=== PATIENT | female | born 1980 | race Caucasian/White ===

== ENCOUNTER 2016-07-22 17:13 | Emergency (ER) | payer BC, OTHER ==
[~2016-07-22] VITALS: Ht 167.6 cm; Wt 64.5 kg
[2016-07-22 17:30] VITALS: Ht 167.6 cm; Wt 64.5 kg
[2016-07-22] MEDS ORDERED: ONDANSETRON 4 MG INJ IV STA (18:38)
[2016-07-22] MEDS ORDERED: SOD CHLORIDE 0.9% 1,000 ML IV STA (18:38)
[2016-07-22] MEDS ORDERED: morphine 4 MG/ML VIAL IV STA (18:38)
[2016-07-22 19:29] LABS: ADD SCAN DIFF NO
[2016-07-22 19:30] LABS: ABNORMAL IP MESSAGE 1; HEMATOCRIT 40.8 % (37.0-47.0); HEMOGLOBIN 13.9 g/dl (12.0-16.0); MEAN CORPUSCULAR HEMOGLOBIN 31.3 pg (29.0-33.0); MEAN CORPUSCULAR HGB CONC 34.1 g/dl (32.0-37.0); MEAN CORPUSCULAR VOLUME 91.9 fl (82.0-101.0); MEAN PLATELET VOLUME 10.4 fl (7.4-10.4); PLATELET COUNT 313 10^3/UL (140-415); RED BLOOD COUNT 4.44 10^6/ul (4.20-5.40); RED CELL DISTRIBUTION WIDTH 12.5 % (11.5-14.5); WHITE BLOOD COUNT 14.6 10^3/ul (4.8-10.8)
[2016-07-22 19:33] LABS: ADD UMIC YES; URINE BILIRUBIN (Dip) NEGATIVE (NEGATIVE); URINE BLOOD (Dip) NEGATIVE (NEGATIVE); URINE COLOR LT. YELLOW (YELLOW); URINE GLUCOSE (Dip) NEGATIVE (NEGATIVE); URINE KETONES (Dip) 3+ (NEGATIVE); URINE LEUKOCYTE ESTERASE (Dip) NEGATIVE (NEGATIVE); URINE NITRITE (Dip) NEGATIVE (NEGATIVE); URINE TOTAL PROTEIN (Dip) 1+ (NEGATIVE); URINE UROBILINOGEN (Dip) 0.2 E.U./dL (0.1-1.0)
[2016-07-22 19:43] LABS: ALBUMIN 4.9 g/dl (3.3-4.9)
[2016-07-22 19:44] LABS: POTASSIUM 3.7 mmol/L (3.5-5.1)
[2016-07-22 19:46] LABS: ALBUMIN/GLOBULIN RATIO 1.32; BILIRUBIN,INDIRECT 0.8 mg/dl (0-1.1); BILIRUBIN,TOTAL 0.8 mg/dl (0.2-1.3); CREATININE 0.66 mg/dl (0.44-1.00); TOTAL PROTEIN 8.6 g/dl (6.1-8.1)
[2016-07-22 19:47] LABS: CALCIUM 9.6 mg/dl (8.4-10.2)
[2016-07-22 19:52] LABS: BACTERIA,URINE FEW; SQUAMOUS EPITHELIAL CELL,UR MODERATE; URINE RBCS 0-2 /HPF (0)
[2016-07-22 19:57] LABS: LYMPHOCYTES # 0.1 10^3/ul (0.8-2.9); MONOCYTE # 0.3 10^3/ul (0.3-0.9); NEUTROPHIL # 12.3 10^3/ul (1.6-7.5)
--- NOTE | 2016-07-22 20:57 | RADRPT ---
PROCEDURE: CT abdomen and pelvis without IV contrast. CLINICAL INDICATION: Abdominal pain TECHNIQUE: CT scan of the abdomen and pelvis without contrast was performed on the [employer] volumetric [address] scanner. The patient was scanned without intravenous contrast. Coronal and sagittal refo rmatted images were obtained from the axial source images. The CTDI vol is 8.92 mGy and the DLP is 4 50.62 mGy-cm. COMPARISON: None. FINDINGS: CT abdomen: The lung bases are clear. The heart size is not enlarged and is without pericardial thickening or e ffusion. The liver is normal in size and density and is without focal mass or intrahepatic biliary dilatation . The spleen is normal in size and homogeneous in density. The stomach is grossly unremarkable. T he pancreas as visualized is normal. The gallbladder and biliary tree are unremarkable and there is no evidence for common bile duct dilatation. The adrenal glands are symmetric and normal. The kid neys are symmetrically unremarkable as well. No renal calculus or obstructive uropathy or mass lesi on is seen. The aorta is of normal in caliber. There is no retroperitoneal lymphadenopathy. The celio hepatis region is clear. The small and large bowel and mesentery, as visualized, are unremarkable. The norm al appendix is identified. CT pelvis: The pelvic organs are normal. The pelvic sidewalls and inguinal regions are clear. No pelvic mass, lymphadenopathy, or free fluid is seen. No acute inflammation is seen. The urinary bladder is wit hin normal limits. The surrounding osseous structures are unremarkable. No osteolytic or osteoblastic lesion is detect ed. IMPRESSION: No acute pathology in the abdomen and pelvis. RPTAT: HPNM Physician Kimberlee Date Time Electronically viewed and signed by Physician Kimberlee on 07/22/2016 20:57 /
[2016-07-22] MEDS ORDERED: ONDA4TAB14 PO (21:04)
--- NOTE | 2016-07-22 21:07 | ERD ---
ER Documentation Chief Complaint Date/Time DATE: 07/22/16 TIME: 21:05 Chief Complaint ABDOMINAL PAIN WITH NAUSEA AND VOMITING TODAY HPI Patient is a 36-year-old female who presents with nausea vomiting and diarrhea and abdominal pain that began today. Pain is mid abdomen. She thinks it may be due to food she ate yesterday. Denies fever. Denies any dysuria hematuria or increased urinary frequency. Last menstrual period was July 11. ROS All systems reviewed and are negative except as per history of present illness. Medications Home Meds Active Scripts Ondansetron (Ondansetron Odt) 4 Mg Tab.rapdis, 4 MG PO Q6H Y for NAUSEA AND/OR VOMITING, #20 TAB Prov:DIANA VALENCIA PA-C 07/22/16 Allergies Allergies: Uncoded Allergies: BLEACH (Allergy, Intermediate, RASH, 07/22/16) PMhx/Soc Medical and Surgical Hx: pt denies Medical Hx, pt denies Surgical Hx Hx Alcohol Use: No Hx Substance Use: No Hx Tobacco Use: No Smoking Status: Never smoker FmHx Family History: No diabetes Physical Exam Vitals Vital Signs Date Time Temp Pulse Resp B/P Pulse Ox O2 Delivery O2 Flow Rate FiO2 07/22/16 17:30 97.6 61 18 131/81 100 Physical Exam General: well developed, well nourished, alert, nontoxic, no distress Head: normocephalic, atraumatic Neck: Supple, nontender, no lymphadenopathy, no midline tenderness Respiratory: Clear to auscaultation bilaterally, speaks in full sentences, no use of accesory muscles or labored breathing, no rales, ronchi, or wheezing Cardiovascular: RRR, No murmurs GI: soft, non tender, non distended, negative murphys sign, negative mcburneys point tenderness, no cva tenderness bilaterally, no rebound or guarding Back: no midline tenderness, no step offs or bony abnormalities, sensation to light touch in tact Result Diagram: 07/22/16191407/22/161914 Results 24 hrs Laboratory Tests Test 07/22/16 18:45 07/22/16 19:15 Urine Color LT. YELLOW Urine Clarity CLEAR Urine pH 8.5 Urine Specific [place] 1.015 Urine Ketones 3+ Urine Nitrite NEGATIVE Urine Bilirubin NEGATIVE Urine Urobilinogen 0.2 E.U./dL Urine Leukocyte Esterase NEGATIVE Urine Microscopic RBC 0-2/HPF Urine Microscopic WBC 0-2/HPF Urine Squamous Epithelial Cells MODERATE Urine Bacteria FEW Urine Hemoglobin NEGATIVE Urine Glucose NEGATIVE% Urine Total Protein 1+ White Blood Count 14.610^3/ul Red Blood Count 4.4410^6/ul Hemoglobin 13.9g/dl Hematocrit 40.8% Mean Corpuscular Volume 91.9fl Mean Corpuscular Hemoglobin 31.3pg Mean Corpuscular Hemoglobin Concent 34.1g/dl Red Cell Distribution Width 12.5% Platelet Count 43337^3/UL Mean Platelet Volume 10.4fl Neutrophils % 84.0% Band Neutrophils % 13.0% Lymphocytes % 1.0% Monocytes % 2.0% Neutrophils # 12.310^3/ul Lymphocytes # 0.110^3/ul Monocytes # 0.310^3/ul Sodium Level 141mmol/L Potassium Level 3.7mmol/L Chloride Level 100mmol/L Carbon Dioxide Level 24mmol/L Anion Gap 21 Blood Urea Nitrogen 19mg/dl Creatinine 0.66mg/dl Glucose Level 173mg/dl Calcium Level 9.6mg/dl Total Bilirubin 0.8mg/dl Direct Bilirubin 0.00mg/dl Indirect Bilirubin 0.8mg/dl Aspartate Amino Transf (AST/SGOT) 28IU/L Alanine Aminotransferase (ALT/SGPT) 31IU/L Alkaline Phosphatase 66IU/L Total Protein 8.6g/dl Albumin 4.9g/dl Globulin 3.70g/dl Albumin/Globulin Ratio 1.32 Lipase 45U/L Current Medications Medications (Trade) Dose Ordered Sig/Zainab Route PRN Reason Start Time Stop Time Status Last Admin Dose Admin Sodium Chloride (NS) 1,000 ml @ 1,000 mls/hr Q1H STAT IV 07/22/16 18:38 07/22/16 19:37 DC 07/22/16 19:11 Morphine Sulfate (morphine) 4 mg ONCE STAT IV 07/22/16 18:38 07/22/16 18:40 DC 07/22/16 19:11 Ondansetron HCl (Zofran Inj) 4 mg ONCE STAT IV 07/22/16 18:38 07/22/16 18:40 DC 07/22/16 19:11 Procedures/MDM 36-year-old presents with abdominal pain with nausea vomiting and diarrhea. Her vital signs are normal. Her GI examination is normal she has no tenderness throughout her abdomen and no CVA tenderness. Her labs show elevated white blood cell count of 14.6 with 13% neutrophilic bands. I reviewed these findings with Dr. Rodriguez who recommended CT scan and a CT scan was unremarkable. Patient had good relief of her symptoms with morphine and Zofran and fluids. She is discharged with Zofran and copies of all of her labs and CT reports she can follow with primary care. Recommended this patient follow up with her primary care doctor within 48 hours or return to the emergency room for any worsening of symptoms. However this time I do believe there is suitable for outpatient management. I answered all their questions and they agreed with the plan and were discharged home. Departure Diagnosis: Primary Impression: Abdominal pain Condition: Stable Patient Instructions: Abdominal Pain Additional Instructions: Call your primary care doctor TOMORROW for an appointment during the next 1-2 days.See the doctor sooner or return here if your condition worsens before your appointment time. DIANA VALENCIA PA-C July 22, 2016 21:07
[2016-07-22 21:17] VITALS: BP 112/56; PULSE 67; RESP 16
[2016-07-23] MEDS ORDERED: LOPE2CAP PO (05:36)
[2016-07-23] MEDS ORDERED: HYDR-906 PO (05:36)
[2016-07-23] MEDS ORDERED: VENL150C PO (05:44)
[2016-07-23] MEDS ORDERED: GLUC1CAP48 PO (05:44)
[2016-07-23] MEDS ORDERED: FEXO60TA20 PO (05:44)
[2016-07-23] MEDS ORDERED: ALPR0.5T PO (05:44)
== END 2016-07-22 21:18 | disposition home or self-care (01) ==
LOC: FTE 17:13
DX: R10.9 Unspecified abdominal pain (principal); R11.2 Nausea with vomiting, unspecified
CPT/HCPCS: 74176; 80053; 81001; 83690; 85025; J2270; J2405; J7030; 81003; 96374; 96375

== ENCOUNTER 2016-07-23 03:10 | Emergency (ER) | payer BC ==
[~2016-07-23] VITALS: Ht 162.6 cm; Wt 66.5 kg
[~2016-07-23 03:10] MED LIST: ONDA4TAB14 PO
[2016-07-23 03:16] VITALS: Ht 162.6 cm; Wt 66.5 kg
--- NOTE | 2016-07-23 03:40 | ERA ---
ER Documentation Chief Complaint Date/Time DATE: 07/23/16 TIME: 03:40 Chief Complaint abd pain with n/v was seen here yesterday for same problem HPI The patient is a 36-year-old female, presenting to the ER because of abdominal pain, associated with nausea, vomiting, diarrhea after eating German food the day before. She was seen in the ER yesterday for similar symptoms, had extensive workup including a negative the abdominal pelvic CT. She was discharged with Zofran for nausea. She denies fever, chills, neck pain, chest pain The abdominal pain is diffuse and vague. She denies hematemesis or hematochezia, denies dysuria. She does not smoke nor drink does smoke marijuana Past medical history: Anxiety Past surgical history: None ROS All systems reviewed and are negative except as per history of present illness. Medications Home Meds Active Scripts Loperamide Hcl* (Imodium*) 2 Mg Capsule, 2 MG PO .AFTER EA LOOSE BM Y for DIARRHEA, #20 TAB Prov:VICKY MOULTON MD 07/23/16 Hydrocodone/Acetaminophen ([place] 5-325 Tablet) 1 Each Tablet, 1 EACH PO Q6, #10 TAB Prov:VICKY MOULTON MD 07/23/16 Ondansetron (Ondansetron Odt) 4 Mg Tab.rapdis, 4 MG PO Q6H Y for NAUSEA AND/OR VOMITING, #20 TAB Prov:DIANA VALENCIA PA-C 07/22/16 Allergies Allergies: Uncoded Allergies: BLEACH (Allergy, Intermediate, RASH, 07/22/16) PMhx/Soc Hx Alcohol Use: No Hx Substance Use: No Hx Tobacco Use: No Physical Exam Vitals Vital Signs Date Time Temp Pulse Resp B/P Pulse Ox O2 Delivery O2 Flow Rate FiO2 07/23/16 03:16 98.3 58 20 144/71 100 Physical Exam Const: No acute distress. Head: Atraumatic. Eyes: Normal Conjunctiva. ENT: Normal External Ears, Nose and Mouth. Neck: Full range of motion. No meningismus. Resp: Clear to auscultation bilaterally. Cardio: Regular rate and rhythm, no murmurs. Abd: Soft, non distended, normal bowel sounds, minimal and vague abdominal discomfort, no rigidity, rebound, CVA tenderness Skin: No petechiae or rashes. Back: No midline or flank tenderness. Ext: No cyanosis, or edema. Neur: Awake and alert. No focal deficit Psych: Normal Mood and Affect. Result Diagram: 07/23/1639907/23/16399 Results 24 hrs Laboratory Tests Test 07/23/16 04:00 07/23/16 04:11 White Blood Count 11.810^3/ul Red Blood Count 4.0410^6/ul Hemoglobin 12.6g/dl Hematocrit 37.1% Mean Corpuscular Volume 91.8fl Mean Corpuscular Hemoglobin 31.2pg Mean Corpuscular Hemoglobin Concent 34.0g/dl Red Cell Distribution Width 12.6% Platelet Count 81864^3/UL Mean Platelet Volume 10.6fl Neutrophils % 90.0% Band Neutrophils % 1.0% Lymphocytes % 6.0% Monocytes % 3.0% Neutrophils # 10.610^3/ul Lymphocytes # 0.710^3/ul Monocytes # 0.410^3/ul Differential Comment MANUAL DIFF Sodium Level 137mmol/L Potassium Level 3.5mmol/L Chloride Level 103mmol/L Carbon Dioxide Level 22mmol/L Anion Gap 16 Blood Urea Nitrogen 17mg/dl Creatinine 0.59mg/dl Glucose Level 170mg/dl Calcium Level 9.1mg/dl Total Bilirubin 0.6mg/dl Direct Bilirubin 0.00mg/dl Indirect Bilirubin 0.6mg/dl Aspartate Amino Transf (AST/SGOT) 26IU/L Alanine Aminotransferase (ALT/SGPT) 30IU/L Alkaline Phosphatase 59IU/L Total Protein 7.9g/dl Albumin 4.5g/dl Globulin 3.40g/dl Albumin/Globulin Ratio 1.32 Lipase 20U/L Bedside Urine pH (LAB) 8.5 Bedside Urine Protein (LAB) 1+ Bedside Urine Glucose (UA) Negative Bedside Urine Ketones (LAB) 4+ Bedside Urine Blood Negative Bedside Urine Nitrite (LAB) Negative Bedside Urine Leukocyte Esterase (L Negative Current Medications Medications (Trade) Dose Ordered Sig/Zainab Route PRN Reason Start Time Stop Time Status Last Admin Dose Admin Sodium Chloride (NS) 1,000 ml @ 1,000 mls/hr Q1H STAT IV 07/23/16 03:47 07/23/16 04:46 DC 07/23/16 04:03 Morphine Sulfate (morphine) 4 mg ONCE STAT IV 07/23/16 03:47 07/23/16 03:49 DC 07/23/16 04:04 Ondansetron HCl (Zofran Inj) 4 mg ONCE STAT IV 07/23/16 03:47 07/23/16 03:49 DC 07/23/16 04:04 Loperamide HCl 4 mg 4 mg ONCE ONCE PO 07/23/16 04:00 07/23/16 04:01 DC 07/23/16 04:04 Sodium Chloride (NS) 1,000 ml @ 1,000 mls/hr Q1H ONCE IV 07/23/16 04:30 07/23/16 05:29 DC Procedures/MDM MEDICAL MAKING DECISION: The patient is a 36-year-old female, presenting with acute vomiting and diarrhea, most likely due to acute food poisoning, acute dehydration. She want to the 1 L normal saline for acute dehydration, morphine 4 mg IV for pain, Zofran 4 mg IV for nausea and Imodium 4 mg p.o. for diarrhea with good response. The differential diagnoses considered include but are not limited to cholelithiasis, cholecystitis, cystitis, pancreatitis, hepatitis, gastritis, peptic ulcer disease, gastric ulcer, appendicitis, diverticulitis, cholangitis, choledocholithiasis, partial small bowel obstruction. Departure Diagnosis: Primary Impression: Vomiting and diarrhea Additional Impression: Dehydration Condition: Good Comments She was discharged with [place] and Imodium I discussed the findings with the patient. I advised the patient to follow-up with the primary physician in about 1-2 days, sooner if needed and return if any concern. The patient's blood pressure was elevated (>120/80) but appears stable without evidence of hypertension emergency or urgency. The patient was counseled about the risks of hypertension and urged to pursue outpatient monitoring and therapy within a week with their primary care physician. VICKY MOULTON MD July 23, 2016 03:40
[2016-07-23] MEDS ORDERED: ONDANSETRON 4 MG INJ IV STA (03:47)
[2016-07-23] MEDS ORDERED: SOD CHLORIDE 0.9% 1,000 ML IV STA (03:47)
[2016-07-23] MEDS ORDERED: morphine 4 MG/ML VIAL IV STA (03:47)
[2016-07-23] MEDS ORDERED: LOPERAMIDE 2 MG CAP PO ONE (04:00)
[2016-07-23 04:10] LABS: URINE BLOOD (Dip) POC Negative (NEGATIVE)
[2016-07-23 04:16] LABS: ADD SCAN DIFF NO
[2016-07-23 04:18] LABS: ABNORMAL IP MESSAGE 1; HEMATOCRIT 37.1 % (37.0-47.0); HEMOGLOBIN 12.6 g/dl (12.0-16.0); MEAN CORPUSCULAR HEMOGLOBIN 31.2 pg (29.0-33.0); MEAN CORPUSCULAR VOLUME 91.8 fl (82.0-101.0); MEAN PLATELET VOLUME 10.6 fl (7.4-10.4); PLATELET COUNT 266 10^3/UL (140-415); RED BLOOD COUNT 4.04 10^6/ul (4.20-5.40); RED CELL DISTRIBUTION WIDTH 12.6 % (11.5-14.5); WHITE BLOOD COUNT 11.8 10^3/ul (4.8-10.8)
[2016-07-23] MEDS ORDERED: SOD CHLORIDE 0.9% 1,000 ML IV ONE (04:30)
[2016-07-23 04:37] LABS: ALBUMIN 4.5 g/dl (3.3-4.9); ALBUMIN/GLOBULIN RATIO 1.32; BILIRUBIN,INDIRECT 0.6 mg/dl (0-1.1); BILIRUBIN,TOTAL 0.6 mg/dl (0.2-1.3); CALCIUM 9.1 mg/dl (8.4-10.2); CREATININE 0.59 mg/dl (0.44-1.00); POTASSIUM 3.5 mmol/L (3.5-5.1); TOTAL PROTEIN 7.9 g/dl (6.1-8.1)
[2016-07-23 05:31] LABS: LYMPHOCYTES # 0.7 10^3/ul (0.8-2.9); MONOCYTE # 0.4 10^3/ul (0.3-0.9); NEUTROPHIL # 10.6 10^3/ul (1.6-7.5)
[2016-07-23] MEDS ORDERED: HYDR-906 PO (05:36)
[2016-07-23] MEDS ORDERED: LOPE2CAP PO (05:36)
[2016-07-23 05:39] VITALS: BP 102/56; PULSE 53; RESP 20; TEMP 97.6
[2016-07-23] MEDS ORDERED: ALPR0.5T PO (05:44)
[2016-07-23] MEDS ORDERED: FEXO60TA20 PO (05:44)
[2016-07-23] MEDS ORDERED: VENL150C PO (05:44)
[2016-07-23] MEDS ORDERED: GLUC1CAP48 PO (05:44)
== END 2016-07-23 05:46 | disposition home or self-care (01) ==
LOC: E/R 03:10
DX: R11.10 Vomiting, unspecified (principal); R19.7 Diarrhea, unspecified; E86.0 Dehydration
CPT/HCPCS: 36415; 80053; 81003; 83690; 85025; 96361; 96374; 96375; 99284; J2270; J2405; J7030